=== PATIENT | female | born 1980 | race Caucasian/White ===

== ENCOUNTER 2016-09-18 00:07 | Emergency (ER) | payer OTHER ==
[2016-09-18 00:08] VITALS: BMI 38.2
[2016-09-18 00:21] VITALS: BP 142/90; PULSE 95; RESP 18; TEMP 98.2; O2SAT 99
[2016-09-18] MEDS ORDERED: Sodium Chloride 0.9% 1,000 ML IV SCH (01:00)
--- NOTE | 2016-09-18 01:11 | ED PDOC ---
Arrival/HPI - General Chief Complaint: High Blood Sugar Time Seen by Provider: 09/18/16 00:45 Historian: Patient - History of Present Illness Narrative History of Present Illness (Text): 09/18/16 01:08 Deepa Bosch is a 35 year old female, with a history of hypertension, hyperthyroidism, and diabetes, presents to the emergency department complaining of elevated blood glucose level. Patient states that her insulin pump stopped working at 22:00 yesterday. Upon arrival to ed, her blood glucose level was 327 mg/dl. Denies any headache, dizziness, vision changes, fever, chills, chest pain , nausea, vomiting, diarrhea, urinary symptoms, or any other complaints at this time. Time/Duration: 1-3 hours Symptom Onset: Sudden Symptom Course: Unchanged Severity Level: Mild Activities at Onset: Light Past Medical History - Provider Review Nursing Documentation Reviewed: Yes - Infectious Disease Hx of Infectious Diseases: None - Tetanus Immunization Tetanus Immunization: Up to Date - Cardiac Hx Hypertension: Yes - Pulmonary Hx Respiratory Disorders: No - Neurological Hx Neurological Disorder: No - HEENT Hx HEENT Disorder: No (WEARS RX GLASSES FOR DISTANCE) - Renal Hx Renal Disorder: No - Endocrine/Metabolic Hx Hyperthyroidism: Yes - Hematological/Oncological Hx Blood Transfusions: No Hx Blood Transfusion Reaction: No - Integumentary Hx Dermatological Disorder: (CELLULITIS TO SUPRAPUBIC AREA 01-04-13,ABSCESS TO LEFT GROIN AREA H/O) - Musculoskeletal/Rheumatological Hx Falls: No - Gastrointestinal Hx Gastrointestinal Disorders: (OBESITY) - Genitourinary/Gynecological Hx Genitourinary Disorders: No - Psychiatric Hx Depression: No Hx Substance Use: No - Surgical History Hx Tonsillectomy: Yes - Anesthesia Hx Anesthesia: Yes Hx Anesthesia Reactions: No Hx Malignant Hyperthermia: No - Suicidal Assessment Feels Threatened In Home Enviroment: No Family/Social History - Physician Review Nursing Documentation Reviewed: Yes Family/Social History: No Known Family HX Smoking Status: Never Smoked Hx Alcohol Use: No Hx Substance Use: No Hx Substance Use Treatment: No Allergies/Home Meds Allergies/Adverse Reactions: Allergies Penicillins Allergy (Mild, Verified 01/17/16 17:19) ITCHING Home Medications: Home Meds Medication Instructions Recorded Confirmed Labetalol Hydrochloride [Labetalol] 100 mg PO TID 12/31/12 01/17/16 NIFEdipine [Procardia] 90 mg PO HS 12/31/12 01/17/16 Enalapril Maleate [Enalapril] 10 mg PO DAILY 03/10/14 01/17/16 Insulin Lispro, Recombinant 0 units SC DAILY 07/02/14 01/17/16 [Humalog] Review of Systems - Physician Review All systems were reviewed & negative as marked: Yes - Review of Systems Constitutional: Normal. absent: Fatigue, Fevers Eyes: Normal. absent: Vision Changes, Photophobia Respiratory: Normal. absent: SOB, Cough, Sputum Cardiovascular: Normal. absent: Chest Pain, Palpitations Gastrointestinal: Normal. absent: Abdominal Pain, Diarrhea, Nausea, Vomiting Musculoskeletal: Normal Neurological: Normal. absent: Headache, Dizziness Psychiatric: Normal Physical Exam Vital Signs Reviewed: Yes Vital Signs Temp Pulse Resp BP Pulse Ox 09/18/16 00:11 98.2 F 95 H 18 142/90 99 Temperature: Afebrile Blood Pressure: Normal Pulse: Regular Respiratory Rate: Normal Appearance: Positive for: Well-Appearing, Non-Toxic, Comfortable Pain Distress: None Mental Status: Positive for: Alert and Oriented X 3 - Systems Exam Head: Present: Atraumatic, Normocephalic Pupils: Present: PERRL Conjunctiva: Present: Normal Respiratory/Chest: Present: Clear to Auscultation, Good Air Exchange. No: Respiratory Distress, Accessory Muscle Use Cardiovascular: Present: Regular Rate and Rhythm, Normal S1, S2. No: Murmurs Abdomen: Present: Normal Bowel Sounds. No: Tenderness, Distention, Peritoneal Signs Lower Extremity: Present: Normal Inspection. No: Edema Neurological: Present: GCS=15, CN II-XII Intact, Speech Normal Skin: Present: Warm, Dry, Normal Color. No: Rashes Psychiatric: Present: Alert, Oriented x 3, Normal Insight, Normal Concentration Medical Decision Making ED Course and Treatment: 09/18/16 01:14 Impression: A 35 year old female who presents to the emergency department for elevated blood glucose level. States her insulin pump stopped working at 2200 yesterday. Plan: -- Labs -- IV fluids -- Insulin Progress Notes: 09/18/16 03:07 Patient is stable for discharge. Will discharge patient with prescription for insulin syringes. States she is comfortable to self inject at home. Advised to present to emergency department for worsening symptoms and follow up with PMD within few days. - Lab Interpretations Lab Results: 09/18/16 01:13 09/18/16 01:13 Lab Results 09/18/16 02:18: POC Glucose (mg/dL) 326 H 09/18/16 01:13: WBC 11.7 H, RBC 3.50, Hgb 10.3 L, Hct 30.9 L, MCV 88.3, MCH 29.4 , MCHC 33.3, RDW 13.1, Plt Count 350, MPV 9.5, Gran % 66.3, Lymph % (Auto) 25.7 , [place] % (Auto) 6.8 H, Eos % (Auto) 0.9 L, Baso % (Auto) 0.3, Gran # 7.78 H, Lymph # 3.0, [place] # 0.8 H, Eos # 0.1, Baso # 0.03, Sodium 133, Potassium 4.3, Chloride 101, Carbon Dioxide 21, Anion Gap 15, BUN 25 H, Creatinine 1.2, Est GFR ( Amer) > 60, Est GFR (Non-Af Amer) 51, Random Glucose 332 H*, Calcium 8.7, Total Bilirubin 0.3, AST 23, ALT 35, Alkaline Phosphatase 93, Total Protein 7.8, Albumin 3.8, Globulin 4.0, Albumin/Globulin Ratio 1.0 L I have reviewed the lab results: Yes - RAD Interpretation Beef Grader: Radiologist - Medication Orders Current Medication Orders: Discontinued Medications Sodium Chloride (Sodium Chloride 0.9%) 1,000 mls @ 200 mls/hr IV .Q5H MICKEY Last Admin: 09/18/16 01:02 Dose: 200 MLS/HR eMAR Start Stop Document 09/18/16 01:02 CHRISTIE (Rec: 09/18/16 01:04 CHRISTIE [id number]) Intravenous Solution Start Date 09/18/16 Start Time 01:02 End Date 09/18/16 End time 06:02 Total Infusion Time 300 Insulin Human Regular (Humulin R) 2 units SC STAT STA Stop: 09/18/16 01:44 Last Admin: 09/18/16 02:19 Dose: 2 UNITS Subcutaneous Admin in ER Document 09/18/16 02:19 CHRISTIE (Rec: 09/18/16 02:19 CHRISTIE [id number]) Injection Site MAR Injection Site Left Arm Subcutaneous Administrations Document 09/18/16 02:19 FJA (Rec: 09/18/16 02:19 [facility] [id number]) Charges for Administration # of Subcutaneous Administrations 1 - Scribe Statement The provider has reviewed the documentation as recorded by the Oswald Romano Provider Attestation: All medical record entries made by the Nadiaibe were at my direction and personally dictated by me. I have reviewed the chart and agree that the record accurately reflects my personal performance of the history, physical exam, medical decision making, and the department course for this patient. I have also personally directed, reviewed, and agree with the discharge instructions and disposition. Disposition/Present on Arrival - Present on Arrival Any Indicators Present on Arrival: No History of DVT/PE: No History of Uncontrolled Diabetes: Yes Urinary Catheter: No History of Decub. Ulcer: No History Surgical Site Infection Following: None - Disposition Have Diagnosis and Disposition been Completed?: Yes Diagnosis: Hyperglycemia Disposition: HOME/ ROUTINE Disposition Time: 03:05 Condition: GOOD Discharge Instructions (ExitCare): How to Check Your Blood Sugar (ED), Diabetes Mellitus Type 1 in Adults (GEN) Prescriptions: Syring-Needl,Disp,Insul,0.3 ml [Insulin Syringe] 1 each MC DAILY #6 disp.syrin
[2016-09-18 01:14] LABS: ADD MANUAL DIFF? NO
[2016-09-18 01:27] LABS: BASO # 0.03 K/mm3 (0.0-2.0); BASO % 0.3 % (0.0-3.0); EOS # 0.1 (0.0-0.7); EOS % 0.9 % (1.5-5.0); GRAN # 7.78 (1.4-6.5); GRAN % 66.3 % (50.0-68.0); HEMATOCRIT 30.9 % (36.0-48.0); LYMPH % 25.7 % (22.0-35.0); MEAN CELL VOLUME 88.3 fL (80.0-105.0); MEAN CORPUSCULAR HEMOGLOBIN 29.4 pg (25.0-35.0); MEAN CORPUSCULAR HGB CONC 33.3 g/dl (31.0-37.0); MEAN PLATELET VOLUME 9.5 fl (7.0-11.0); MONO # 0.8 (0.1-0.6); MONO % 6.8 % (1.0-6.0); PLATELET COUNT 350 10^3/uL (120.0-450.0); RED CELL DISTRIBUTION WIDTH 13.1 % (11.5-14.5); WHITE BLOOD COUNT 11.7 10^3/ul (4.5-11.0)
[2016-09-18 01:28] LABS: ALKALINE PHOSPHATASE 93 U/L (38-133); ALT/SGPT 35 U/L (7-56); AST/SGOT 23 U/L (15-39); BILIRUBIN,TOTAL 0.3 mg/dL (0.2-1.3); BLOOD UREA NITROGEN 25 mg/dL (7-21); CALCIUM 8.7 mg/dL (8.4-10.5); CARBON DIOXIDE 21 mmol/L (21-33); CHLORIDE 101 mmol/L (98-107); GFR AFRICAN-AMERICAN > 60; POTASSIUM 4.3 mmol/L (3.6-5.0); SODIUM 133 mmol/L (132-148); TOTAL PROTEIN 7.8 g/dL (5.8-8.3)
[2016-09-18 01:36] LABS: GLUCOSE,RANDOM 332 mg/dL (70-110)
[2016-09-18] MEDS ORDERED: Insulin Regular 1 UNITS/0.01 ML ML SC STA (01:43)
== END 2016-09-18 02:45 | disposition home or self-care (01) ==
LOC: ED 00:07
DX: E11.65 Type 2 diabetes mellitus with hyperglycemia (principal); E05.90 Thyrotoxicosis, unspecified without thyrotoxic crisis or storm; I10 Essential (primary) hypertension
CPT/HCPCS: 80053; 82948; 85025; 96360; 96361; 96372; 99284; J7040

== ENCOUNTER 2017-01-16 16:02 | Emergency (ER) | payer OTHER ==
[2017-01-16 16:03] VITALS: BMI 38.2
--- NOTE | 2017-01-16 16:36 | ED PDOC ---
Arrival/HPI - General Chief Complaint: Back Pain Time Seen by Provider: 01/16/17 16:34 Historian: Patient - History of Present Illness Narrative History of Present Illness (Text): 01/16/17 16:35 Deepa Bosch is a 36 year old female, with a history of hypertension, hyperthyroidism, and diabetes, presents to the emergency department complaining of left lower back pain x 2 days. Patient stated she has had sciatica in the past, and today' symptom resembles it. Patient denies trauma, heavy lifting, urinary symptoms, GI/ incontinence, saddle anesthesias, urinary retention, or abnormal gait. Time/Duration: Other (2 days) Quality: Aching Context: Home Past Medical History - Provider Review Nursing Documentation Reviewed: Yes - Infectious Disease Hx of Infectious Diseases: None - Tetanus Immunization Tetanus Immunization: Up to Date - Cardiac Hx Hypertension: Yes - Pulmonary Hx Respiratory Disorders: No - Neurological Hx Neurological Disorder: No - HEENT Hx HEENT Disorder: No (WEARS RX GLASSES FOR DISTANCE) - Renal Hx Renal Disorder: No - Endocrine/Metabolic Hx Diabetes Mellitus Type 2: Yes - Hematological/Oncological Hx Blood Transfusions: No Hx Blood Transfusion Reaction: No - Integumentary Hx Dermatological Disorder: (CELLULITIS TO SUPRAPUBIC AREA 01-04-13,ABSCESS TO LEFT GROIN AREA H/O) - Musculoskeletal/Rheumatological Hx Falls: No - Gastrointestinal Hx Gastrointestinal Disorders: (OBESITY) - Genitourinary/Gynecological Hx Genitourinary Disorders: No - Psychiatric Hx Depression: No Hx Substance Use: No - Surgical History Hx Section: Yes Hx Tonsillectomy: Yes - Anesthesia Hx Anesthesia: Yes Hx Anesthesia Reactions: No Hx Malignant Hyperthermia: No - Suicidal Assessment Feels Threatened In Home Enviroment: No Family/Social History - Physician Review Nursing Documentation Reviewed: Yes Family/Social History: No Known Family HX Smoking Status: Never Smoked Hx Alcohol Use: No Hx Substance Use: No Hx Substance Use Treatment: No Allergies/Home Meds Allergies/Adverse Reactions: Allergies Penicillins Allergy (Mild, Verified 01/16/17 16:35) ITCHING Home Medications: Home Meds Medication Instructions Recorded Confirmed NIFEdipine [Procardia] 90 mg PO HS 12/31/12 01/16/17 Insulin Pump Cartridge [Omnipod] 0 units SC DAILY 01/16/17 01/16/17 Labetalol [Trandate] 200 mg PO TID 01/16/17 01/16/17 Review of Systems - Review of Systems Constitutional: Normal. absent: Fatigue, Weight Change, Fevers Eyes: Normal ENT: Normal Respiratory: Normal Cardiovascular: Normal Gastrointestinal: Normal Genitourinary Female: Normal Musculoskeletal: Back Pain Skin: Normal. absent: Rash, Pruritis Neurological: Normal Endocrine: Normal Hemo/Lymphatic: Normal Psychiatric: Normal Physical Exam Vital Signs Temp Pulse Resp BP Pulse Ox 01/16/17 16:03 97.8 F 81 18 157/72 H 99 Temperature: Afebrile Blood Pressure: Normal Pulse: Regular Respiratory Rate: Normal Appearance: Positive for: Well-Appearing, Non-Toxic, Comfortable Pain Distress: None Mental Status: Positive for: Alert and Oriented X 3 - Systems Exam Head: Present: Atraumatic, Normocephalic Pupils: Present: PERRL Extroacular Muscles: Present: EOMI Conjunctiva: Present: Normal Mouth: Present: Moist Mucous Membranes Neck: Present: Normal Range of Motion Respiratory/Chest: Present: Clear to Auscultation, Good Air Exchange. No: Respiratory Distress, Accessory Muscle Use Cardiovascular: Present: Regular Rate and Rhythm, Normal S1, S2. No: Murmurs Abdomen: Present: Normal Bowel Sounds. No: Tenderness, Distention, Peritoneal Signs Back: Present: Normal Inspection, Paraspinal Tenderness ((+) mild tenderness over left sciatica area. No skin rash, erythema, skin lesion, swelling or ecchymosis). No: CVA Tenderness, Midline Tenderness Upper Extremity: Present: Normal Inspection. No: Cyanosis, Edema Lower Extremity: Present: Normal Inspection. No: Edema Neurological: Present: GCS=15, CN II-XII Intact, Speech Normal Skin: Present: Warm, Dry, Normal Color. No: Rashes Psychiatric: Present: Alert, Oriented x 3, Normal Insight, Normal Concentration Medical Decision Making ED Course and Treatment: 01/16/17 17:42 Re-evaluation. Patient feels better. Discussed results and plan with patient who expresses understanding. All questions answered and there is agreement with the plan to discharge home with instructions. Patient stable for discharge. Return if symptoms persist or worsen. Patient was recommended to follow up with orthopedist. To take medication as instructed, and to return to ED if symptoms persist or worsen. Re-evaluation Time: 17:42 Reassessment Condition: Re-examined, Improved - Medication Orders Current Medication Orders: Discontinued Medications Diazepam (Valium) 5 mg PO ONCE ONE PRN Reason: Protocol Stop: 01/16/17 16:42 Last Admin: 01/16/17 17:18 Dose: 5 mg Ketorolac Tromethamine (Toradol) 30 mg IM STAT STA Stop: 01/16/17 16:41 Last Admin: 01/16/17 17:17 Dose: 30 mg Disposition/Present on Arrival - Present on Arrival Any Indicators Present on Arrival: No History of DVT/PE: No History of Uncontrolled Diabetes: Yes Urinary Catheter: No History of Decub. Ulcer: No History Surgical Site Infection Following: None - Disposition Have Diagnosis and Disposition been Completed?: Yes Diagnosis: Acute sciatica Disposition: HOME/ ROUTINE Disposition Time: 17:44 Patient Plan: Discharge Condition: STABLE Discharge Instructions (ExitCare): Sciatica (ED) Additional Instructions: Call orthopedist for follow up visit in 2-3 days. Take medication as instructed with food. Return to emergency if symptoms worsen. Prescriptions: diaZEpam [Valium] 5 mg PO DAILY #6 tab Famotidine [Pepcid] 40 mg PO DAILY #10 tablet Naproxen [Naprosyn Tab] 375 mg PO BID #14 tab Forms: [employer] (Romanian), WORK NOTE
[2017-01-16 16:55] VITALS: BP 157/72; PULSE 81; RESP 18; TEMP 97.8; O2SAT 99
== END 2017-01-16 17:53 | disposition home or self-care (01) ==
LOC: ED 16:02
DX: M54.30 Sciatica, unspecified side (principal)
CPT/HCPCS: 81025; 96372; 99283; J1885

== ENCOUNTER 2018-01-04 12:33 | Emergency (ER) | payer OTHER ==
[2018-01-04 12:33] VITALS: BMI 38.2
[2018-01-04 13:00] VITALS: RESP 18; O2SAT 100
--- NOTE | 2018-01-04 13:29 | ED PDOC ---
Arrival/HPI - General Historian: Patient - History of Present Illness Time/Duration: < week (approx 2 days) - General Chief Complaint: Back Pain Time Seen by Provider: 01/04/18 13:04 - History of Present Illness Narrative History of Present Illness (Text): 01/04/18 13:21 Patient is a 37 year old female with a past medical hx of DM type 1, hypertension and sciatica presenting with a complaint of left sided low back pain radiating down her left leg. The pain started acutely while she was moving furniture at her house. The pain is located on her the lower portion of the left side of her back. It radiates down the back of her leg and stops just above the knee. It does not wrap around the front of her leg. "This feels exactly like my sciatica pains." She took Aleve yesterday which helped a little bit but did not take anything today. She decided to come in because last time she came in for this pain, she got a shot and felt much better. She does not follow up with any one regularly for her sciatica pains and only takes something when she aggravates it. The last time was January of 2017 when she was moving a bed in her house. She is feeling normal otherwise without any complaints. Denies fevers, chills, headaches, blurry vision, diplopia, runny nose, sore throat, chest pain, shortness of breath, palpitations, abdominal pain , bowel incontinence, urinary retention/incontinence, saddle anesthesia, numbness, tingling or weakness. (CanDonal) Past Medical History - Provider Review Nursing Documentation Reviewed: Yes - Infectious Disease Hx of Infectious Diseases: None - Tetanus Immunization Tetanus Immunization: Up to Date - Cardiac Hx Cardiac Disorders: Yes Hx Hypertension: Yes - Pulmonary Hx Respiratory Disorders: No - Neurological Hx Neurological Disorder: No - HEENT Hx HEENT Disorder: No (WEARS RX GLASSES FOR DISTANCE) - Renal Hx Renal Disorder: No - Endocrine/Metabolic Hx Endocrine Disorders: Yes Hx Diabetes Mellitus Type 2: Yes - Hematological/Oncological Hx Blood Disorders: No - Integumentary Hx Dermatological Disorder: No (CELLULITIS TO SUPRAPUBIC AREA 01-04-13,ABSCESS TO LEFT GROIN AREA H/O) - Musculoskeletal/Rheumatological Hx Musculoskeletal Disorders: No - Gastrointestinal Hx Gastrointestinal Disorders: Yes (OBESITY) - Genitourinary/Gynecological Hx Genitourinary Disorders: No - Psychiatric Hx Psychophysiologic Disorder: No Hx Substance Use: No - Surgical History Hx Section: Yes (X1) Hx Tonsillectomy: Yes - Anesthesia Hx Anesthesia: Yes Hx Anesthesia Reactions: No Hx Malignant Hyperthermia: No - Suicidal Assessment Feels Threatened In Home Enviroment: No Family/Social History - Physician Review Nursing Documentation Reviewed: Yes Family/Social History: No Known Family HX Smoking Status: Never Smoked Hx Alcohol Use: No Hx Substance Use: No Hx Substance Use Treatment: No Allergies/Home Meds Allergies/Adverse Reactions: Allergies Penicillins Allergy (Mild, Verified 01/04/18 12:41) ITCHING Home Medications: Home Meds Medication Instructions Recorded Confirmed Insulin Pump Cartridge [Omnipod] 0 units SC DAILY 01/16/17 01/04/18 Labetalol [Trandate] 200 mg PO TID 01/16/17 01/04/18 Enalapril/Hydrochlorothiazide 90 mg PO DAILY 01/04/18 01/04/18 [Enalapril-Hctz 5-12.5 mg Tab] Review of Systems - Review of Systems Constitutional: Normal Eyes: Normal. absent: Vision Changes ENT: Normal Respiratory: Normal. absent: SOB, Cough Cardiovascular: Normal. absent: Chest Pain, Palpitations Gastrointestinal: Normal. absent: Abdominal Pain, Constipation, Diarrhea, Nausea, Vomiting Genitourinary Female: Normal. absent: Dysuria, Frequency, Urine Output Changes Musculoskeletal: Back Pain (Left sided, low back that radiates down left leg) Skin: Normal Neurological: Normal. absent: Headache, Focal Weakness, Gait Changes Endocrine: Normal Psychiatric: Normal Physical Exam Vital Signs Reviewed: Yes Temperature: Afebrile Blood Pressure: Normal Pulse: Regular Respiratory Rate: Normal Appearance: Positive for: Well-Appearing, Non-Toxic, Comfortable Pain Distress: None Mental Status: Positive for: Alert and Oriented X 3 - Systems Exam Head: Present: Atraumatic, Normocephalic Extroacular Muscles: Present: EOMI Conjunctiva: Present: Normal Mouth: Present: Moist Mucous Membranes Neck: Present: Normal Range of Motion Respiratory/Chest: Present: Clear to Auscultation, Good Air Exchange. No: Respiratory Distress, Accessory Muscle Use Cardiovascular: Present: Regular Rate and Rhythm, Normal S1, S2. No: Murmurs Abdomen: No: Tenderness, Distention, Peritoneal Signs Back: Present: Other (tender to palpation of left, low back). No: CVA Tenderness, Midline Tenderness Upper Extremity: Present: Normal Inspection. No: Cyanosis, Edema Lower Extremity: Present: Normal Inspection, NORMAL PULSES, Neurovascularly Intact. No: Edema, CALF TENDERNESS, Swelling Neurological: Present: GCS=15, CN II-XII Intact, Speech Normal, Motor Func Grossly Intact, Gait Normal, Memory Normal Skin: Present: Warm, Dry, Normal Color. No: Rashes Psychiatric: Present: Alert, Oriented x 3, Normal Insight, Normal Concentration Vital Signs Temp Pulse Resp BP Pulse Ox 01/04/18 15:04 98.4 F 75 18 120/67 100 01/04/18 14:45 98.4 F 75 18 120/67 100 01/04/18 12:48 97.8 F 81 18 117/79 100 Medical Decision Making Re-evaluation Time: 14:25 Reassessment Condition: Improving,but remains with symptoms ED Course and Treatment: 01/04/18 13:33 Toradol 60mg IM given (CanDonal) Seen and examined with resident. 37 y/o F p/w back pain radiating down leg, states same as previous sciatica. On exam, no midline tenderness. After treatment, improved, feels comfortable to go home and continue symptomatic treatment. (Tirso Cooper) - Medication Orders Current Medication Orders: Discontinued Medications Ketorolac Tromethamine (Toradol) 60 mg IM STAT STA Stop: 01/04/18 13:16 Last Admin: 01/04/18 13:29 Dose: 60 mg MAR Pain Assessment Document 01/04/18 13:29 OCS (Rec: 01/04/18 13:30 OCS [id number]) Pain Reassessment Is this a pain reassessment? No Sleep Is patient sleeping during reassessment? No Presence of Pain Presence of Pain Yes Pain Scale Used Pain Scale Used Numeric Location Left, Right or Bilateral Left Upper or Lower Lower Pain Location Body Site Back Description Description Constant Intensity of Pain at present 9 Aggravating Factors ADL's IM Administration Charges Document 01/04/18 13:29 OCS (Rec: 01/04/18 13:30 OCS [id number]) Injection Site MAR Injection Site Left Deltoid Charges for Administration # of IM Administrations 1 Disposition/Present on Arrival - Present on Arrival Any Indicators Present on Arrival: Yes History of DVT/PE: No History of Uncontrolled Diabetes: Yes Urinary Catheter: No History of Decub. Ulcer: No History Surgical Site Infection Following: None - Disposition Have Diagnosis and Disposition been Completed?: Yes Disposition Time: 14:25 Patient Plan: Discharge - Disposition Diagnosis: Sciatica of left side Disposition: HOME/ ROUTINE Condition: IMPROVED Discharge Instructions (ExitCare): Sciatica (DC) Additional Instructions: Patient is being discharged home with a diagnosis of left sided sciatica exacerbation. Patient has been given prescriptions for Ibuprofen 600mg and Acetaminophen 650mg , which she is to take as needed for pain. Patient can alternate between the two medications every 3 hours as needed. Patient is to follow up with her primary care physician within 2-3 days. If patient experiences any new or worsening symptoms, please go directly to the nearest emergency department. Prescriptions: Acetaminophen 650 mg PO Q6H PRN #28 capsule PRN Reason: Pain, Moderate (4-7) Ibuprofen [Motrin Tab] 600 mg PO Q6H PRN #14 tab PRN Reason: Pain, Moderate (4-7) Forms: [employer] (Welsh)
[2018-01-04 15:03] VITALS: BP 120/67; PULSE 75; TEMP 98.4
== END 2018-01-04 14:45 | disposition home or self-care (01) ==
LOC: ED 12:33
DX: M54.32 Sciatica, left side (principal)
CPT/HCPCS: 96372; 99282; J1885